=== PATIENT | female | born 1985 | race Caucasian/White ===

== ENCOUNTER 2017-10-29 21:11 | Emergency (ER) | payer OTHER, MEDICAID ==
[~2017-10-29] VITALS: Ht 157.5 cm; Wt 52.2 kg
[2017-10-29] MEDS ORDERED: BACLOFEN 10MG T10 MG PO (22:35)
[2017-10-29 22:45] VITALS: BP 105/70
== END 2017-10-29 22:49 | disposition home or self-care (01) ==
LOC: M.ERS 21:11
DX: M62.838 Other muscle spasm (principal); F17.210 Nicotine dependence, cigarettes, uncomplicated